=== PATIENT | male | born 1965 ===

== ENCOUNTER 2023-02-24 12:25 | Inpatient (IN) | payer SELFPAY ==
[2023-02-24] MEDS ORDERED: Bisacodyl 5 MG TAB PO PRN (15:52)
[2023-02-24] MEDS ORDERED: Senokot S 8.6-50 MG TAB PO PRN (15:52)
[2023-02-24 16:00] VITALS: BMI 31.8
[2023-02-24] MEDS ORDERED: HumaLOG 300 UNITS/3 ML VIAL SC PRN ×2 (16:01)
[2023-02-24] MEDS ORDERED: Dextrose 5% in Water 1,000 ML IV PRN (16:01)
[2023-02-24] MEDS ORDERED: Dextrose 50% Abboject 50 ML SYRINGE SLOW IVP PRN (16:01)
[2023-02-24] MEDS ORDERED: Glucagon 1 MG/ML KIT IM PRN (16:01)
[2023-02-24] MEDS ORDERED: Polyethylene Glycol 3350 17 GM Packet PO PRN (16:15)
[2023-02-24 16:59] LABS: Bacteria/HPF None Seen HPF (None Seen); Bilirubin Negative (Negative); Blood, Urine Negative (Negative); Clarity Clear (Clear); Glucose, Urine (Dipstick) Greater than 1000 mg/dL (Negative); Ketone, Urine Negative (Negative); Leukocyte Negative Leu/uL (Negative); Nitrite Negative (Negative); Protein, Urine (Dipstick) Negative (Neg-Trace); RBC/HPF 0-3 HPF (0-3); Specific Gravity, Urine 1.025 (1.002-1.036); Squamous Epithelial None Seen HPF (0-3); WBC/HPF 0-3 HPF (0-3); pH, Urine 6.5 (5.0-9.0)
[2023-02-24] MEDS ORDERED: cefTRIAXone\\ROCEPHIN 2 GM in Sodium Chloride 0.9% 100 ML IVPB SCH (17:00)
[2023-02-24] MEDS: metFORMIN 500 MG TAB PO SCH (17:13)
[2023-02-24] MEDS: glipiZIDE 5 MG TAB PO SCH (17:13)
[2023-02-24] MEDS ORDERED: Guaifenesin DM 100-10/5 ML UDCUP PO PRN (19:43)
[2023-02-24] MEDS ORDERED: Atorvastatin Calcium 20 MG TAB PO SCH (21:00)
[2023-02-24] MEDS: oxyCODONE 5 MG TAB PO PRN (21:09)
[2023-02-24] MEDS: Acetaminophen 500 MG TAB PO SCH (21:09)
[2023-02-24] MEDS: Mupirocin 2% Ointment 22 GM Tube TOP SCH (21:11)
[2023-02-25] MEDS: oxyCODONE 5 MG TAB PO PRN (04:39)
[2023-02-25 05:28] LABS: #Basophils 0.1 thou/uL (0.0-0.2); #Eosinphils 0.4 thou/uL (0.0-0.7); #Monocytes 1.5 thou/uL (0.11-0.59); #Neutrophils 14.5 thou/uL (1.40-6.50); %Basophils 0.4 % (0.0-1.0); %Eosinophils 1.9 % (0.0-10.0); %Lymphocytes 15.4 % (21.0-51.0); %Monocytes 7.8 % (0.0-10.0); %Neutrophils 74.1 % (42.0-75.0); Hematocrit 41.8 % (42.0-52.0); Hemoglobin 13.9 g/dL (14.0-18.0); Mean Corpuscular HGB CONC 33.3 g/dL (32.0-36.0); Mean Corpuscular Hemoglobin 29.9 pg (27.0-31.0); Mean Corpuscular Volume 89.9 fl (78.0-98.0); Mean Platelet Volume 9.4 fL (7.4-10.4); Platelet Count 306 10x3/uL (130-400); RBC Distribution Width 12.2 % (11.5-14.5); Red Blood Cell (RBC) Count 4.65 mill/uL (4.70-6.10); White Blood Cell (WBC) Count 19.5 10x3/uL (4.8-10.8)
[2023-02-25 05:57] LABS: Anion Gap 13 mmol/L (10-20); BUN (Urea Nitrogen) 7 mg/dL (8.4-25.7); Calc. Creatinine Clearance 155 mL/min (70-130); Calcium 9.1 mg/dL (7.8-10.44); Carbon Dioxide 26 mmol/L (22-29); Chloride 100 mmol/L (98-107); Estimated GFR 102; Glucose 143 mg/dL (70-105); Potassium 4.3 mmol/L (3.5-5.1); Sodium 135 mmol/L (136-145)
[2023-02-25] MEDS: metFORMIN 500 MG TAB PO SCH ×2 (08:31→17:32)
[2023-02-25] MEDS: glipiZIDE 5 MG TAB PO SCH ×2 (08:31→16:07)
[2023-02-25] MEDS: Acetaminophen 500 MG TAB PO SCH (08:32)
[2023-02-25] MEDS: Mupirocin 2% Ointment 22 GM Tube TOP SCH ×2 (08:34→15:01)
[2023-02-25] MEDS ORDERED: Amlodipine 5 MG TAB PO SCH (09:00)
[2023-02-25] MEDS ORDERED: Polyethylene Glycol 3350 17 GM Packet PO SCH (09:00)
[2023-02-25] MEDS ORDERED: Lisinopril 20 MG TAB PO SCH (09:00)
[2023-02-25] MEDS ORDERED: Vancomycin 1 GM in Premix 1 BAG IVPB SCH (10:27)
[2023-02-25] MEDS ORDERED: Piperacillin/Tazobactam 3.375 GM in Sodium Chloride 0.9% 100 ML IVPB SCH ×3 (10:30→17:00)
[2023-02-25] MEDS ORDERED: Morphine 2 MG/ML VIAL SLOW IVP PRN (10:42)
[2023-02-25] MEDS ORDERED: Vancomycin 2.5 GM in Sodium Chloride 0.9% 500 ML IVPB SCH (12:15)
[2023-02-25] MEDS ORDERED: Ketorolac Tromethamine 30 MG/ML VIAL IVP SCH (14:20)
[2023-02-25] MEDS ORDERED: traMADol HCl 50 MG TAB PO PRN (14:20)
[2023-02-25] MEDS ORDERED: Ketorolac Tromethamine 30 MG/ML VIAL IVP PRN (14:20)
[2023-02-25] MEDS ORDERED: Sodium Chloride 0.9% 1,000 ML IV SCH (14:30)
[2023-02-25] MEDS ORDERED: Bupivacaine PF 0.5% 30 ML VIAL ONE (15:42)
[2023-02-25] MEDS ORDERED: Ondansetron PF 4 MG/2 ML Vial ONE ×2 (15:46→16:03)
[2023-02-25] MEDS ORDERED: fentaNYL PF 100 MCG/2 ML SYRINGE ONE (15:46)
[2023-02-25] MEDS ORDERED: PROPOFOL 20 ML ONE (15:46)
[2023-02-25] MEDS ORDERED: Lidocaine 2% PF 5 ML VIAL ONE ×2 (15:46)
[2023-02-25] MEDS ORDERED: HYDROmorphone 0.5 MG/0.5 ML SYRINGE ONE (15:59)
[2023-02-25] MEDS ORDERED: Albuterol 200 PUFF (6.7GM INHALER) ONE (16:02)
[2023-02-25] MEDS ORDERED: PHENYLEPHRINE-NS 100 MCG/ML 10 ML SYRINGE ONE ×2 (16:03→16:35)
[2023-02-25] MEDS ORDERED: PROPOFOL 200 MG/20 ML VIAL ONE (16:03)
[2023-02-25] MEDS ORDERED: Metoclopramide HCl 10 MG/2 ML VIAL ONE ×2 (16:03→16:29)
[2023-02-25] MEDS ORDERED: Lidocaine 1% PF 5 ML VIAL ONE (16:03)
[2023-02-25] MEDS ORDERED: Albuterol HFA (OR) 200 PUFF INH ONE (16:03)
[2023-02-25] MEDS ORDERED: Promethazine HCl 25 MG/ML VIAL IM PRN (16:43)
[2023-02-25] MEDS ORDERED: Ondansetron HCl/PF 4 MG/2 ML Vial IVP PRN (16:43)
[2023-02-25] MEDS ORDERED: Ibuprofen 600 MG TAB PO PRN (16:43)
[2023-02-25] MEDS ORDERED: PACU-Morphine 4MG/ML VIAL SLOW IVP PRN (16:43)
[2023-02-25] MEDS ORDERED: Acetaminophen 500 MG TAB PO SCH (17:00)
[2023-02-25 17:33] VITALS: BP 143/89; TEMP 97.9
[2023-02-25] MEDS ORDERED: Amoxicillin/Potassium Clav 875 MG TAB PO SCH (21:00)
[2023-02-26] MEDS ORDERED: Vancomycin (BATCH) 1.5 GM in Premix 1 BAG IVPB SCH (01:00)
== END 2023-02-25 18:43 | disposition home or self-care (01) | DRG 603 ==
LOC: INTOOBSV 14:22 → 2SW 14:22 → OBSVTOIN 02-25 10:28
PROVIDERS: ADMIT Hospitalist; ATTEND Internal Medicine
PROC: 0J9B0ZZ Drainage of Perineum Subcutaneous Tissue and Fascia, Open Approach (ICD-10-PCS; principal; 2023-02-25)
DX: L02.215 Cutaneous abscess of perineum (principal); L03.315 Cellulitis of perineum; E11.9 Type 2 diabetes mellitus without complications; N49.2 Inflammatory disorders of scrotum; I10 Essential (primary) hypertension; N50.89 Other specified disorders of the male genital organs; Z79.84 Long term (current) use of oral hypoglycemic drugs; Z79.899 Other long term (current) drug therapy; Z98.890 Other specified postprocedural states
CPT/HCPCS: 36415; 36416; 80048; 81001; 85025; 87070; 87076; 87077; 87186; 87205; 96372; 96374; G0378; J0696; J1170; J1650; J1885; J2001; J2272; J2405; J2543; J2704; J2765; J3370; J3490; J7030; J7050; S0020